=== PATIENT | female | born 1995 | race Two or more races ===

== ENCOUNTER 2021-03-19 18:37 | Emergency (ER) | payer MEDICAID ==
[~2021-03-19] VITALS: Ht 154.9 cm; Wt 49.0 kg
--- NOTE | 2021-03-19 20:15 | NUR ---
PT JOSE J AT 1847 C/O "I have swelling on my labia x2wks. Went to UC yesterday but was told too big. Need to be drained". PT A/OX4. TOLERATING R/A WELL WITH NO SOB.
[2021-03-19] MEDS ORDERED: TDAP [DIPH/PERTUSSIS/TET] 0.5 ML VIAL IM ONE (20:47)
[2021-03-19] MEDS: TDAP [DIPH/PERTUSSIS/TET] 0.5 ML VIAL IM ONE (20:53)
--- NOTE | 2021-03-19 21:15 | NUR ---
WOUND CARE I&D DONE BY FLASH ACTIONSCRIPT DEVELOPER WITH FEMALE RN COMPLIANCE REVIEW SPECIALIST
[2021-03-19] MEDS: LIDOCAINE HCL/PF 1% 30 ML VIAL TP ONE (21:17)
[2021-03-19 21:23] VITALS: BP 112/60
--- NOTE | 2021-03-19 21:23 | NUR ---
Patient discharged to home in stable condition. Written and verbal after care instructions given. Patient verbalizes understanding of instruction.
[2021-03-19] MEDS ORDERED: SULF1TAB48 PO (21:27)
[2021-03-19] MEDS ORDERED: CEPH500T PO (21:27)
--- NOTE | 2021-03-19 21:44 | NUR ---
RX GIVEN. PT DC VIA W/C TO
== END 2021-03-19 21:41 | disposition home or self-care (01) ==
LOC: ER 18:40
DX: S30.23XA Contusion of vagina and vulva, initial encounter (principal); J45.909 Unspecified asthma, uncomplicated; Z79.899 Other long term (current) drug therapy; Z59.00 Homelessness unspecified; W01.198A Fall on same level from slipping, tripping and stumbling with subsequent striking against other object, initial encounter; Y93.39 Activity, other involving climbing, rappelling and jumping off; Y92.89 Other specified places as the place of occurrence of the external cause; Y99.8 Other external cause status
CPT/HCPCS: 56405; 90471; 90715; 99284; A6403; A6407; J3490

== ENCOUNTER 2021-03-22 16:59 | Emergency (ER) | payer MEDICAID ==
[~2021-03-22] VITALS: Ht 154.9 cm; Wt 59.4 kg
[~2021-03-22 16:59] MED LIST: CEPH500T PO; SULF1TAB48 PO
[2021-03-22 17:00] VITALS: BP 101/71
[2021-03-22] MEDS ORDERED: HYDROCODONE/APAP 5/325MG TABLET ONE (17:40)
[2021-03-22] MEDS ORDERED: HYDROCODONE/APAP 5/325MG TABLET PO ONE (18:00)
--- NOTE | 2021-03-22 18:00 | NUR ---
SUTURE REMOVE BY BERTHA PEREZ.
--- NOTE | 2021-03-22 18:06 | NUR ---
Patient discharged to home in stable condition. Written and verbal after care instructions given. Patient verbalizes understanding of instruction.
== END 2021-03-22 18:07 | disposition home or self-care (01) ==
LOC: ER 17:02
DX: Z48.01 Encounter for change or removal of surgical wound dressing (principal); N76.0 Acute vaginitis; J45.909 Unspecified asthma, uncomplicated; Z79.899 Other long term (current) drug therapy
CPT/HCPCS: 99283; A6407

== ENCOUNTER 2021-03-25 09:53 | Emergency (ER) | payer MEDICAID ==
[~2021-03-25] VITALS: Ht 154.9 cm; Wt 46.7 kg
--- NOTE | 2021-03-25 10:02 | NUR ---
BIBS FOR WOUNDE CHECK X1 WEEK, BATOLENE'S CYST. VITALS ARE WITHIN NORMAL LIMITS. BREATHING IS EVEN AND UNLABORED.
[2021-03-25 10:12] VITALS: BP 109/63
--- NOTE | 2021-03-25 10:17 | NUR ---
PA AT BEDSIDE
--- NOTE | 2021-03-25 10:33 | NUR ---
Patient discharged to home in stable condition. Written and verbal after care instructions given. Patient verbalizes understanding of instruction.
== END 2021-03-25 10:34 | disposition home or self-care (01) ==
LOC: ER 09:56
DX: Z48.00 Encounter for change or removal of nonsurgical wound dressing (principal); J45.909 Unspecified asthma, uncomplicated; Z79.899 Other long term (current) drug therapy

== ENCOUNTER 2021-09-01 19:04 | Emergency (ER) | payer SELFPAY ==
[~2021-09-01] VITALS: Ht 154.9 cm; Wt 49.9 kg
[2021-09-01 19:41] VITALS: BP 107/70
--- NOTE | 2021-09-01 20:06 | NUR ---
Patient discharged to home in stable condition. Written and verbal after care instructions given. Patient verbalizes understanding of instruction.
== END 2021-09-01 20:28 | disposition home or self-care (01) ==
LOC: ER 19:11
DX: T19.2XXA Foreign body in vulva and vagina, initial encounter (principal); J45.909 Unspecified asthma, uncomplicated; Z59.00 Homelessness unspecified; Z79.899 Other long term (current) drug therapy; X58.XXXA Exposure to other specified factors, initial encounter; Y93.89 Activity, other specified; Y92.89 Other specified places as the place of occurrence of the external cause; Y99.8 Other external cause status

== ENCOUNTER 2021-09-30 10:40 | Emergency (ER) | payer SELFPAY ==
[~2021-09-30] VITALS: Ht 154.9 cm; Wt 45.4 kg
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
--- NOTE | 2021-09-30 12:30 | NUR ---
Parent at bedside. Updated with plan of care
--- NOTE | 2021-09-30 12:58 | NUR ---
Patient discharged to home in stable condition. Written and verbal after care instructions given. Patient verbalizes understanding of instruction.
[2021-09-30 12:59] VITALS: BP 99/55
== END 2021-09-30 13:00 | disposition home or self-care (01) ==
LOC: ER 10:42
DX: S33.5XXA Sprain of ligaments of lumbar spine, initial encounter (principal); S70.02XA Contusion of left hip, initial encounter; J45.909 Unspecified asthma, uncomplicated; Z59.00 Homelessness unspecified; Z79.899 Other long term (current) drug therapy; V03.99XA Pedestrian with other conveyance injured in collision with car, pick-up truck or van, unspecified whether traffic or nontraffic accident, initial encounter; Y93.89 Activity, other specified; Y92.89 Other specified places as the place of occurrence of the external cause; Y99.8 Other external cause status
CPT/HCPCS: 72050-TC; 72170-TC; 73502